=== PATIENT | male | born 1940 ===

== ENCOUNTER → 2016-08-18 | Outpatient (CLI) | payer MEDICARE, BC, OTHER ==
[2016-08-18 16:37] LABS: ANION GAP 9.4 (10.0-19.0); BLOOD UREA NITROGEN 18 mg/dL (6-24); CALCIUM 8.5 mg/dL (8.5-10.5); CHLORIDE 103 mMol/L (96-110); CO2 28 mMol/L (22-32); CREATININE 1.1 mg/dL (0.6-1.3); ESTIMATED GFR (MDRD EQUATION) > 60; MAGNESIUM 1.9 mg/dL (1.8-2.6); PHOSPHORUS 2.5 mg/dL (2.5-4.9); POTASSIUM 4.4 mMol/L (3.7-5.1); SODIUM 136 mMol/L (135-145)
== END ==
LOC: LCNC 16:08
PROVIDERS: Internal Medicine Interventional Cardiology
DX: R42 Dizziness and giddiness (principal)